=== PATIENT | female | born 1950 | race Caucasian/White ===

== ENCOUNTER → 2019-03-24 | Outpatient (CLI) | payer MEDICARE | LOC: M.RAD 13:03 | DX: Z12.31 Encounter for screening mammogram for malignant neoplasm of breast (principal) ==

== ENCOUNTER → 2019-06-09 | Day surgery (SDC) | payer OTHER ==
[~2019-06-09] MED LIST: ASMANEX220 MC1 INH; CHILDREN'S ASPI81 M1 PO; FEBUXOSTAT80 MG PO; FLUOXETINE HCL20 M1 PO; FUROSEMIDE 20 M20 MG PO; LOPRESSOR50 MG PO; MITIGARE0.6 MG PO; OMEPRAZOLE 20 M20 M1 PO; PRINIVIL20 MG PO; PROAIR HFA8.5 GM INH; SUPER THERAVIT1 EACH PO; URSODIOL300 MG PO; VITAMIN B-121000 MC2 SUBLING; ZANTAC 150MG T150 M1 PO
--- NOTE | ~2019-06-09 | PROC ---
[address] [address] PROCEDURE REPORT Name: ANISA LOUIS Room: [facility].#: [id number] Admission: 06/09/19 Attend Phys: Clayton Barber MD Discharge: Date of : 52 Report #: [id number] THIS REPORT FOR: //name// cc: Laron Epperson Adam J DO ~ THIS REPORT FOR: //name// For GI report, please see the Provation report in Perceptive 7 content. By: 0632Medical Records Staff ROSE /NEY
[2019-06-09 10:44] LABS: HEMATOCRIT 40.6 % (37.0-47.0); HEMOGLOBIN 13.6 gm/dL (12.0-15.0); MCH 30.2 pg (26.0-34.0); MCHC 33.6 g/dL (28.0-37.0); MCV 89.7 fL (80.0-100.0); MPV 7.3 fl. (7.2-11.1); RBC 4.52 mil/uL (4.20-5.00); RDW-CV 13.8 % (10.5-14.5); WBC 6.4 thou/uL (4.0-11.0)
[2019-06-09 10:50] LABS: CALCIUM 9.3 mg/dL (8.5-10.1); CREATININE 1.6 mg/dL (0.6-1.3); POTASSIUM 4.1 mmol/L (3.5-5.1)
--- NOTE | 2019-06-09 14:21 | EKG ---
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: : 1950 Requested By: Clayton Barber Order Number: [id number] Reading MD: Neal Carlin Measurements Intervals [place] Rate: 60 P: 40 [place]: 168 QRS: -27 QRSD: 95 T: 31 QT: 434 QTc: 434 Interpretive Statements Sinus rhythm Borderline left axis deviation Anterior infarct, old No previous ECG available for comparison Electronically Signed On 06-09-2019 14:20:24 [employer] by Neal Carlin [email or web address] <ELECTRONICALLY SIGNED> By: Neal Carlin MD, [facility] 06/09/19 1420 1041 1041 Neal Carlin MD, FAC /EPI
--- NOTE | 2019-06-13 16:07 | PATH ---
[address] [address] PATHOLOGY RPT PROCEDURE Name: ANISA LOUIS [id number] Admission: 06/09/19 Date of : 52 Discharge: Report #: [id number] Path Case #: [id number] [facility] Accession Number: [id number] . 01 Material submitted: . esophagus - ESOPHAGEAL BIOPSY TO RULE OUT CADENA'S . 01 Clinical history: . R/O Cadena's . 02 Diagnosis: Esophageal biopsy: - Benign esophageal and gastric/columnar types mucosa with moderate chronic inflammation typical of reflux, negative for goblet cells/diagnostic Cadena's metaplasia and dysplasia. (JUSTIN:nelsy; 06/13/2019) QMS 06/13/2019 1509 Local . 02 Electronically signed: . Akin Delvalle MD, Pathologist NPI- [id number] . 01 Gross description: . The specimen is received in formalin, labeled "Joshua, Jacdonta, esophageal biopsy" and consists of 3 fragments of pink-geller tissue measuring between 0.2 x 0.2 cm and 0.3 x 0.1 cm which are entirely submitted in A1. (SDY; 06/10/2019) SYU/SYU 06/10/2019 1438 Local . 02 Pathologist provided ICD-10: K20.9 . 02 CPT . 212423 Specimen Comment: A courtesy copy of this report has been sent to [phone], [phone] Specimen Comment: [phone] Specimen Comment: Report sent to / DR CAMPOS Performed at: [address], [place], [place] [id number] MD Ezra Mayers MD Phone: [phone] Performed at: 02 [facility] [address], [place], [place] [id number] MD Akin Delvalle MD Phone: [phone]
== END | disposition home or self-care (01) ==
LOC: M.SUR 09:36
PROVIDERS: Internal Medicine Gastroenterology
DX: K21.0 Gastro-esophageal reflux disease with esophagitis (principal); K44.9 Diaphragmatic hernia without obstruction or gangrene; R12 Heartburn; Z79.899 Other long term (current) drug therapy

== ENCOUNTER 2020-02-01 14:19 | Emergency (ER) | payer OTHER ==
[~2020-02-01] VITALS: Ht 152.4 cm; Wt 64.9 kg
[2020-02-01 14:37] LABS: URINE BILIRUBIN NEGATIVE (Negative); URINE BLOOD NEGATIVE (Negative); URINE CLARITY CLEAR; URINE COLOR YELLOW; URINE GLUCOSE-RANDOM NEGATIVE (Negative); URINE KETONES NEGATIVE (Negative); URINE LEUKOCYTES-REFLEX 1+ (Negative); URINE NITRITE-REFLEX NEGATIVE (Negative); URINE PROTEIN NEGATIVE (Negative); URINE UROBILINOGEN 0.2 E.U./dl (0.2-1.0)
[2020-02-01 14:42] LABS: MUCUS None Seen strn/LPF (None Seen); SQUAMOUS >10 Many /LPF (0-3)
[2020-02-01 14:43] LABS: BACTERIA-REFLEX 1-9 Few /HPF (None Seen); CASTS None Seen /LPF (None Seen); CRYSTALS None Seen /LPF (None Seen); URINE RBC None Seen /HPF (0-2); URINE WBC-REFLEX 6-15 Few /HPF (0-5)
[2020-02-01 14:48] LABS: ABSOLUTE BASOPHILS 0.1 thou/uL (0.0-0.2); ABSOLUTE EOSINOPHILS 0.1 thou/uL (0.0-0.7); ABSOLUTE LYMPHOCYTES 2.3 thou/uL (0.8-5.3); ABSOLUTE NEUTROPHILS 7.7 thou/uL (1.6-8.1); EOSINOPHILS 0.7 %; HEMATOCRIT 43.3 % (37.0-47.0); HEMOGLOBIN 14.2 gm/dL (12.0-15.0); LYMPHOCYTES 20.6 %; MCH 29.3 pg (26.0-34.0); MCHC 32.8 g/dL (28.0-37.0); MCV 89.3 fL (80.0-100.0); MONOCYTES 8.8 %; MPV 7.2 fl. (7.2-11.1); NUCLEATED RBCS 0 /100WBC; PLATELET COUNT* 429 thou/uL (150-400); POLYS 68.9 %; RBC 4.85 mil/uL (4.20-5.00); RDW-CV 14.2 % (10.5-14.5); WBC 11.2 thou/uL (4.0-11.0)
[2020-02-01 14:57] LABS: CALCIUM 9.5 mg/dL (8.5-10.1); CREATININE 1.7 mg/dL (0.6-1.3); POTASSIUM 4.1 mmol/L (3.5-5.1)
[2020-02-01] MEDS ORDERED: DRIZALMA SPRINK60 MG PO (14:59)
[2020-02-01] MEDS ORDERED: MELATONIN5 GM PO (14:59)
[2020-02-01] MEDS ORDERED: LORATIDINE 10 M10 M1 PO (14:59)
[2020-02-01] MEDS ORDERED: REGLAN 10 MG TA10 MG PO (15:00)
[2020-02-01] MEDS ORDERED: HYDROCORTISONE30 GM TOP (15:00)
[2020-02-01] MEDS ORDERED: ULORIC80 MG PO (15:00)
[2020-02-01 15:01] LABS: TOTAL BILIRUBIN 0.4 mg/dL (<0.1-1.0); TOTAL PROTEIN 8.5 g/dL (6.4-8.2)
[2020-02-01] MEDS ORDERED: CIPROFLOXACIN500 M1 PO (16:17)
[2020-02-01] MEDS ORDERED: NORCO 5-325 TA1 EAC2 PO (16:17)
[2020-02-01 16:41] VITALS: BP 131/70
--- NOTE | 2020-02-02 08:26 | EKG ---
[place] [address] ELECTROCARDIOGRAM REPORT Name: ANISA LOUIS Room: 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: UGALDE : 1950 Requested By: Abdi Osborne Order Number: [id number] MD: Matthew Morales Measurements Intervals [place] Rate: 63 P: 57 [place]: 181 QRS: -22 QRSD: 88 T: 40 QT: 426 QTc: 437 Interpretive Statements Sinus rhythm Left axis deviation Delayed R wave progression Baseline wander in lead(s) II,III,aVL,aVF Compared to ECG 06/09/2019 10:41:43 No significant changes Electronically Signed On 02-02-2020 8:26:36 CDT by Matthew Morales [email or web address] <ELECTRONICALLY SIGNED> By: Matthew Morales MD, FACC 02/02/20 0826 1453 1453 Matthew Morales MD, FACC /EPI
== END 2020-02-01 16:42 | disposition home or self-care (01) ==
LOC: M.ERS 14:19
PROVIDERS: Family Medicine
DX: N39.0 Urinary tract infection, site not specified (principal); K59.00 Constipation, unspecified; I10 Essential (primary) hypertension; Z90.710 Acquired absence of both cervix and uterus; Z90.49 Acquired absence of other specified parts of digestive tract; Z85.3 Personal history of malignant neoplasm of breast; Z88.2 Allergy status to sulfonamides; Z88.1 Allergy status to other antibiotic agents

== ENCOUNTER → 2020-03-26 | Outpatient (CLI) | payer OTHER ==
[~2020-03-26] MED LIST changes: +CIPROFLOXACIN500 M1 PO; +DRIZALMA SPRINK60 MG PO; +HYDROCORTISONE30 GM TOP; +LORATIDINE 10 M10 M1 PO; +MELATONIN5 GM PO; +NORCO 5-325 TA1 EAC2 PO; +REGLAN 10 MG TA10 MG PO; +ULORIC80 MG PO
== END ==
LOC: M.RAD 13:01
PROVIDERS: ATTEND Internal Medicine
DX: Z12.31 Encounter for screening mammogram for malignant neoplasm of breast (principal)

== ENCOUNTER → 2020-11-19 | Outpatient (CLI) | payer OTHER | LOC: M.RAD 14:14 | PROVIDERS: ATTEND Family Medicine | DX: M18.0 Bilateral primary osteoarthritis of first carpometacarpal joints (principal); M85.89 Other specified disorders of bone density and structure, multiple sites ==

== ENCOUNTER → 2021-03-26 | Outpatient (CLI) | payer OTHER | LOC: M.RAD 13:36 | PROVIDERS: ATTEND Internal Medicine | DX: Z12.31 Encounter for screening mammogram for malignant neoplasm of breast (principal); N63.10 Unspecified lump in the right breast, unspecified quadrant; Z85.3 Personal history of malignant neoplasm of breast ==